=== PATIENT | male | born 1980 | race Caucasian/White ===

== ENCOUNTER 2017-01-11 07:50 | Emergency (ER) | payer OTHER ==
[~2017-01-11] VITALS: Ht 180.3 cm; Wt 129.3 kg
[~2017-01-11 07:50] MED LIST: METF500T PO; TRIA15CR3 TP
--- NOTE | 2017-01-11 08:23 | PHYS DOC ---
Past History Past Medical History: Anxiety, Depression, Hypertension, Other Past Surgical History: No Surgical History Smoking: Cigarettes Alcohol Use: None Drug Use: None Adult General Chief Complaint Chief Complaint: LOSS OF CONSCIOUSNESS HPI HPI Patient is a 36 year old male who presents with complaint of generalized fatigue , weakness, and dehydration. The patient states that he has not been eating or drinking over the past 2-3 days. Patient states that he has been under a trauma in this amount of stress that is related to his family at this time. The patient states that he became very lightheaded while at work earlier today. Patient was brought to the emergency department from work by EMS after patient had a reported loss of consciousness. Patient did not suffer any injuries. Patient states that over the past 2-3 days he has been experiencing chest pain, back pain, and dizziness. Patient has history of diabetes mellitus type 2 and states that he is not taking any medications for this at this time. Patient denies any fever, abdominal pain or nausea currently. The patient does admit to suicidal ideation. The patient states that he has been pursuing outpatient counseling at this time but does not feel like this is helping him. Review of Systems Review of Systems Constitutional: Generalized fatigue [] Eyes: Denies change in visual acuity, redness, or eye pain [] HENT: Denies nasal congestion or sore throat [] Respiratory: Denies cough or shortness of breath [] Cardiovascular: Chest pain [] GI: Denies abdominal pain, nausea, vomiting, bloody stools or diarrhea [] : Denies dysuria or hematuria [] Musculoskeletal: Back pain [] Integument: Denies rash or skin lesions [] Neurologic: Headache, lightheadedness, denies focal weakness or sensory changes [] Allergies Allergies Allergies Coded Allergies Type Severity Reaction Last Updated Verified No Known Allergies Allergy Unknown 11/08/15 Yes Physical Exam Physical Exam Constitutional: Alert, afebrile, appears in mild discomfort. [] HENT: Normocephalic, atraumatic, bilateral external ears normal, oropharynx moist, no oral exudates, nose normal. [] Eyes: PERRLA, EOMI, conjunctiva normal, no discharge. [] Neck: Normal range of motion, no tenderness, supple, no stridor. [] Cardiovascular:Heart rate regular rhythm, no murmur [] Lungs & Thorax: Bilateral breath sounds clear to auscultation [] Abdomen: Bowel sounds normal, soft, no tenderness, no masses, no pulsatile masses. [] Skin: Warm, dry, no erythema, no rash. [] Back: No tenderness, no CVA tenderness. [] Extremities: No tenderness, no cyanosis, no clubbing, ROM intact, no edema. [] Neurologic: Alert and oriented X 3, normal motor function, normal sensory function, no focal deficits noted. [] Current Patient Data Vital Signs Vital Signs Date Time Temp Pulse Resp B/P (MAP) Pulse Ox O2 Delivery O2 Flow Rate FiO2 01/11/17 08:11 98.0 80 20 98 01/11/17 08:06 Room Air Lab Results Laboratory Tests Test 01/11/17 08:26 01/11/17 09:35 White Blood Count 17.8 x10^3/uL Red Blood Count 5.23 x10^6/uL Hemoglobin 15.9 g/dL Hematocrit 47.0 % Mean Corpuscular Volume 90 fL Mean Corpuscular Hemoglobin 30 pg Mean Corpuscular Hemoglobin Concent 34 g/dL Red Cell Distribution Width 13.1 % Platelet Count 280 x10^3/uL Neutrophils (%) (Auto) 78 % Lymphocytes (%) (Auto) 15 % Monocytes (%) (Auto) 5 % Eosinophils (%) (Auto) 2 % Basophils (%) (Auto) 1 % Neutrophils # (Auto) 13.8 x10^3uL Lymphocytes # (Auto) 2.6 x10^3/uL Monocytes # (Auto) 0.8 x10^3/uL Eosinophils # (Auto) 0.3 x10^3/uL Basophils # (Auto) 0.2 x10^3/uL Segmented Neutrophils % 70 % Band Neutrophils % 2 % Lymphocytes % 22 % Monocytes % 2 % Eosinophils % 3 % Basophils % 1 % Platelet Estimate Adequate Giant Platelets Present Sodium Level 142 mmol/L Potassium Level 4.3 mmol/L Chloride Level 107 mmol/L Carbon Dioxide Level 25 mmol/L Anion Gap 10 Blood Urea Nitrogen 15 mg/dL Creatinine 0.9 mg/dL Estimated GFR (Cockcroft-Gault) 95.0 BUN/Creatinine Ratio 17 Glucose Level 172 mg/dL Calcium Level 8.5 mg/dL Magnesium Level 1.9 mg/dL Total Bilirubin 0.2 mg/dL Aspartate Amino Transf (AST/SGOT) 9 U/L Alanine Aminotransferase (ALT/SGPT) 25 U/L Alkaline Phosphatase 70 U/L Creatine Kinase 43 U/L Creatine Kinase MB (Mass) < 0.5 ng/mL Creatine Kinase MB Relative Index 1.2 % Troponin I Quantitative < 0.017 ng/mL Total Protein 6.6 g/dL Albumin 3.4 g/dL Albumin/Globulin Ratio 1.1 Lipase 68 U/L Urine Collection Type Void Urine Color Brynn Urine Clarity Clear Urine pH 5.5 Urine Specific [place] >=1.030 Urine Protein Neg Urine Glucose (UA) Neg mg/dL Urine Ketones (Stick) Trace mg/dL Urine Blood Neg Urine Nitrite Neg Urine Bilirubin Neg Urine Urobilinogen Dipstick 0.2 mg/dL Urine Leukocyte Esterase Neg Urine RBC 0 /HPF Urine WBC Rare /HPF Urine Squamous Epithelial Cells Occ /LPF Urine Bacteria 0 /HPF Urine Mucus Slight /LPF Urine Opiates Screen Neg Urine Methadone Screen Neg Urine Barbiturates Neg Urine Phencyclidine Screen Neg Urine Amphetamine/Methamphetamine Neg Urine Benzodiazepines Screen Neg Urine Cocaine Screen Neg Urine Cannabinoids Screen Neg Urine Ethyl Alcohol Neg Current Medications Medications (Trade) Dose Ordered Sig/Eder Route PRN Reason Start Time Stop Time Status Last Admin Dose Admin Aspirin (Children'S Aspirin) 324 mg 1X ONCE PO 01/11/17 08:30 01/11/17 08:31 DC 01/11/17 08:30 Sodium Chloride 1,000 ml @ 1,000 mls/hr Q1H IV 01/11/17 08:30 01/11/17 09:29 DC 01/11/17 08:30 Prochlorperazine Edisylate (Compazine) 10 mg 1X ONCE IV 01/11/17 08:30 01/11/17 08:31 DC 01/11/17 08:30 Diphenhydramine HCl (Benadryl) 25 mg 1X ONCE IVP 01/11/17 08:30 01/11/17 08:31 DC 01/11/17 08:30 EKG EKG Interpreted by me: Heart rate 68, normal sinus rhythm, normal intervals, early repolarization, no acute ST elevations or depressions [] Radiology/Procedures Radiology/Procedures [address] [address] IMAGING REPORT Signed PATIENT: JAYDA SAMPSON ACCOUNT: [id number] : 1980 LOCATION: ER AGE: 36 SEX: M EXAM STATUS: PRE ER ORD. PHYSICIAN: MARI HUSTON MD REASON: chest pain PROCEDURE: PORTABLE CHEST 1V Chest radiograph 01/11/2017 at 0841 hours Indication: Chest pain Comparison: 11/08/2015 Technique: Upright frontal view of the chest is provided. Findings: Cardiomediastinal silhouette is within normal limits. No pleural effusions, pulmonary vascular congestion or pneumothorax. The lungs are clear. Osseous structures are normal. Impression: No acute cardiopulmonary process. DICTATED AND SIGNED BY: DARLENE MONTEIRO MD DATE: 01/11/17 0851 CC: MARI HUSTON MD; PCP,NO ~ [] Course & Med Decision Making Course & Med Decision Making Pertinent Labs and Imaging studies reviewed. (See chart for details) Patient was started on IV fluids in the emergency department and treated with Compazine and Benadryl for headache. The patient's medical workup showed an elevated white blood cell count and mildly elevated blood glucose count but other tan no significant acute findings. The patient was cleared for psychiatric assessment. The patient was evaluated through telemedicine by Dr. Bejarano of psychiatry. After Dr. Bejarano interviewed the patient, she stated that the patient had a good support system and that the patient would like to pursue outpatient therapy. She feels that this would be appropriate at this time. I do not feel this to be unreasonable. Dr. Bejarano recommended starting the patient on Lexapro 10 mg daily which was initiated in the emergency department. She also recommended prescribing the patient hydroxyzine to use as needed for anxiety. Spoke with the patient regarding plan of care and he was comfortable with this plan and felt safe going home at this time. Advised return emergency department for any worsening symptoms. Patient voiced understanding and in agreement with treatment plan. Dragon Disclaimer Dragon Disclaimer This chart was dictated in whole or in part using Voice Recognition software in a busy, high-work load, and often noisy Emergency Department environment. It may contain unintended and wholly unrecognized errors or omissions. Departure Departure: Impression: Primary Impression: Dehydration Additional Impressions: Depression Anxiety Disposition: 01 HOME, SELF-CARE Condition: IMPROVED Referrals: PCP,NO (PCP) Patient Instructions: Anxiety and Panic Attacks, Dehydration, Adult, Depression , Adult Additional Instructions: You will be started on Lexapro daily for treatment of depression. You will also be started on hydroxyzine to use as needed for anxiety. It is recommended that you follow-up with a primary doctor in the next 1-2 weeks for reevaluation. Return to the emergency department for any worsening symptoms. Scripts Hydroxyzine Hcl (HYDROXYZINE HCL) 25 Mg Tablet 25 MG PO Q6HRS Y for ANXIETY / AGITATION, #60 TAB Prov: MARI HUSTON MD 01/11/17 Escitalopram Oxalate (ESCITALOPRAM OXALATE) 10 Mg Tablet 1 TAB PO DAILY, #30 TAB 0 Refills Prov: MARI HUSTON MD 01/11/17 Problem Qualifiers Additional Impressions: Depression Depression Type: unspecified Qualified Codes: F32.9 - Major depressive disorder, single episode, unspecified MARI HUSTON MD Jan 11, 2017 08:23
[2017-01-11] MEDS ORDERED: ASPIRIN 81 MG TAB.CHEW PO ONE (08:30)
[2017-01-11] MEDS ORDERED: diphenhydrAMINE 50 MG/ML VIAL IVP ONE (08:30)
[2017-01-11] MEDS ORDERED: PROCHLORPERAZINE 10 MG/2 ML VIAL. IV ONE (08:30)
[2017-01-11] MEDS ORDERED: IV NORMAL SALINE 1,000ML 1,000 ML IV SCH (08:30)
[2017-01-11 08:39] LABS: BASO # 0.2 x10^3/uL (0.0-0.2); BASO % 1 % (0-3); EOS # 0.3 x10^3/uL (0.0-0.7); EOS % 2 % (0-3); HEMOGLOBIN 15.9 g/dL (13.0-17.5); LYMPH # 2.6 x10^3/uL (1.0-4.8); LYMPH % 15 % (24-48); MEAN CORPUSCULAR HEMOGLOBIN 30 pg (25-35); MEAN CORPUSCULAR HGB CONC 34 g/dL (31-37); MEAN CORPUSCULAR VOLUME 90 fL (79-100); MONO # 0.8 x10^3/uL (0.0-1.1); MONO % 5 % (0-9); NEUT # 13.8 x10^3uL (1.8-7.7); NEUT % 78 % (31-73); PLATELET COUNT 280 x10^3/uL (140-400); RED BLOOD COUNT 5.23 x10^6/uL (4.30-5.70); RED CELL DISTRIBUTION WIDTH 13.1 % (11.5-14.5); WHITE BLOOD COUNT 17.8 x10^3/uL (4.0-11.0)
--- NOTE | 2017-01-11 08:54 | RAD ---
Chest radiograph 01/11/2017 at 0841 hours Indication: Chest pain Comparison: 11/08/2015 Technique: Upright frontal view of the chest is provided. Findings: Cardiomediastinal silhouette is within normal limits. No pleural effusions, pulmonary vascular congestion or pneumothorax. The lungs are clear. Osseous structures are normal. Impression: No acute cardiopulmonary process.
[2017-01-11 09:00] LABS: ALBUMIN 3.4 g/dL (3.4-5.0); ALBUMIN/GLOBULIN RATIO 1.1 (1.0-1.7); ALK PHOS 70 U/L (46-116); ALT (SGPT) 25 U/L (16-63); ANION GAP 10 (6-14); AST (SGOT) 9 U/L (15-37); BLOOD UREA NITROGEN 15 mg/dL (8-26); BUN/CREATININE RATIO 17 (6-20); CALCIUM 8.5 mg/dL (8.5-10.1); CARBON DIOXIDE 25 mmol/L (21-32); CHLORIDE 107 mmol/L (98-107); CREATINE KINASE 43 U/L (39-308); CREATININE 0.9 mg/dL (0.7-1.3); GLUCOSE 172 mg/dL (70-99); LIPASE 68 U/L (73-393); MAGNESIUM 1.9 mg/dL (1.8-2.4); POTASSIUM 4.3 mmol/L (3.5-5.1); SODIUM 142 mmol/L (136-145); TOTAL BILIRUBIN 0.2 mg/dL (0.2-1.0); TOTAL PROTEIN 6.6 g/dL (6.4-8.2)
[2017-01-11 09:23] LABS: % BANDS 2 % (0-9); % BASOS 1 % (0-3); % EOS 3 % (0-5); % LYMPHS 22 % (24-48); % MONOS 2 % (0-10); % SEGS 70 % (35-66); PLT ESTIMATE ADEQUATE (ADEQUATE)
--- NOTE | 2017-01-11 09:52 | EKG ---
[address] [address] Test Date: 2017-01-11 Test Time: 08:24:55 Pat Name: JAYDA SAMPSON Department: Room: Gender: M [employer]: [employer] : 1980 Requested By: MARI HUSTON Order Number: [id number] Reading MD: Measurements Intervals [place] Rate: 68 P: 29 [place]: 176 QRS: 29 QRSD: 90 T: 27 QT: 382 QTc: 411 Interpretive Statements SINUS RHYTHM R-S TRANSITION ZONE IN V LEADS DISPLACED TO THE RIGHT NON SPECIFIC ST-T ABNORMALITY (ELEVATION) OTHERWISE NORMAL ECG RI6.01 Unconfirmed report No previous ECG available for comparison
[2017-01-11 10:01] LABS: AMPHETAMINE/METHAMPHETAMINE NEG (NEG); BARBITURATES NEG (NEG); BENZODIAZEPINES NEG (NEG); CANNABINOIDS NEG (NEG); COCAINE NEG (NEG); METHADONE NEG (NEG); OPIATES NEG (NEG); PHENCYCLIDINE NEG (NEG)
[2017-01-11 10:02] LABS: BACTERIA,URINE 0 /HPF (0-FEW); BILIRUBIN,URINE NEG (NEG); CLARITY,URINE CLEAR; COLOR,URINE AMBER; GLUCOSE,URINE NEG (NEG); NITRITE,URINE NEG (NEG); RBC,URINE 0 /HPF (0-2); SQUAMOUS EPITHELIAL CELL,UR OCC /LPF; UROBILINOGEN,URINE 0.2 mg/dL (0.2 mg/dL); WBC,URINE RARE /HPF (0-4)
[2017-01-11 10:30] VITALS: BP 151/91
[2017-01-11] MEDS ORDERED: ESCITALOPRAM 10 MG TABLET. PO STA (11:18)
[2017-01-11] MEDS ORDERED: ESCITALOPRAM OX10 MG PO (11:23)
[2017-01-11] MEDS ORDERED: HYDR25TA PO (11:23)
== END 2017-01-11 11:40 | disposition home or self-care (01) ==
LOC: ER 07:50
DX: E86.0 Dehydration (principal); R51 Headache; E11.9 Type 2 diabetes mellitus without complications; I10 Essential (primary) hypertension; F41.9 Anxiety disorder, unspecified; F32.9 Major depressive disorder, single episode, unspecified; F17.210 Nicotine dependence, cigarettes, uncomplicated
CPT/HCPCS: 36415; 71010; 80053; 80305; 80320; 81001; 82553; 83690; 83735; 84443; 84484; 85007; 85027; 93005; 96374; 96375; 99285; J0780; J1200; G0481; J7030

== ENCOUNTER 2017-01-23 08:53 | Emergency (ER) | payer OTHER ==
[~2017-01-23] VITALS: Ht 180.3 cm; Wt 129.3 kg
[~2017-01-23 08:53] MED LIST changes: +ESCITALOPRAM OX10 MG PO; +HYDR25TA PO
--- NOTE | 2017-01-23 09:10 | PHYS DOC ---
Past History Past Medical History: Anxiety, Depression, Hypertension, Other Past Surgical History: No Surgical History Smoking: Cigarettes Alcohol Use: None Drug Use: None Adult General HPI HPI Patient is a 36 year old M who presents with signs and symptoms of allergic reaction. Patient states that after eating rm chicken last night he developed tongue swelling and difficulty swallowing. Patient stated throughout the night he felt like his whole body was itching. Patient took Benadryl last night however woke up this morning with persistent symptoms and went to the [facility] who transferred the patient to the emergency room. Patient states he is able to swallow his own saliva but feels his throat is closing up. Patient denies any wheezing. Patient denies any nausea or vomiting. Patient denies any fevers. Patient is no other complaints. Review of Systems Review of Systems GEN: Denies fevers, chills, sweats HEENT: Swollen throat and tongue CV: Denies chest pain RESP: Denies shortness of air, cough GI: Denies n/v/d NEURO: Denies confusion, dizziness MSK: Denies weakness, joint pain/swelling Current Medications Current Medications Current Medications Medications (Trade) Dose Ordered Sig/Eder Start Time Stop Time Status Last Admin Dose Admin Dexamethasone Sodium Phosphate (Decadron) 10 mg 1X ONCE 01/23/17 09:15 01/23/17 09:16 UNV Diphenhydramine HCl (Benadryl) 50 mg 1X ONCE 01/23/17 09:15 01/23/17 09:16 UNV Epinephrine HCl 0.2 mg 1X ONCE 01/23/17 09:15 01/23/17 09:16 UNV Famotidine (Pepcid) 20 mg 1X ONCE 01/23/17 09:15 01/23/17 09:16 UNV Allergies Allergies Allergies Coded Allergies Type Severity Reaction Last Updated Verified No Known Allergies Allergy Unknown 11/08/15 Yes Physical Exam Physical Exam GEN.: No apparent distress. Alert and oriented. HEENT: Head is normocephalic, atraumatic NECK: Supple. LUNGS: CTAB. HEART: RRR, S1, S2 present. Peripheral pulses intact ABDOMEN: Soft, nontender. Positive bowel sounds. EXTREMITIES: Without any cyanosis. NEUROLOGIC: Normal speech, normal tone PSYCHIATRIC: Normal affect, normal mood. SKIN: No ulcerations EKG EKG [] Radiology/Procedures Radiology/Procedures [] Course & Med Decision Making Course & Med Decision Making Pertinent Labs and Imaging studies reviewed. (See chart for details) Patient was seen and evaluated emergency room, epinephrine, Decadron, Benadryl, Pepcid were ordered 0947: Patient was reevaluated in which he states his swollen tongue and throat are improving and feels much better MDM: After reviewing the chart, CC/HPI/PMH, physical exam, the patient is having potentially a mild allergic reaction however given the sense of tongue swelling and difficult swallowing the patient was given epinephrine and will be sent home with a prescription for EpiPen's. On reevaluation the patient is improving and will be discharged home. Additional verbal discharge instructions were provided to the patient and that if symptoms get worse or any new symptoms arise that are worrisome to the patient he is to return to the emergency room immediately [] Dragon Disclaimer Dragon Disclaimer This chart was dictated in whole or in part using Voice Recognition software in a busy, high-work load, and often noisy Emergency Department environment. It may contain unintended and wholly unrecognized errors or omissions. Departure Departure: Impression: Primary Impression: Allergic reaction to food Disposition: HOME, SELF-CARE Condition: IMPROVED Referrals: PCP,NO (PCP) Patient Instructions: Allergies, Generic Scripts Prednisone (PREDNISONE) 50 Mg Tablet 50 MG PO DAILY for 4 Days, #4 TAB Prov: ANG VALDIVIA DO 01/23/17 Epinephrine (Epinephrine) 0.15 Mg/0.3 Ml Auto.injct 0.3 MG IJ PRN 1X Y for ALLERGIES for 30 Days, #2 SYR Prov: ANG VALDIVIA DO 01/23/17 Problem Qualifiers Primary Impression: Allergic reaction to food Encounter type: initial encounter Qualified Codes: T78.1XXA - Other adverse food reactions, not elsewhere classified, initial encounter ANG VALDIVIA DO Jan 23, 2017 09:10
[2017-01-23] MEDS ORDERED: DEXAMETHASONE SOD PHOS 10 MG/ML VIAL IV ONE (09:30)
[2017-01-23] MEDS ORDERED: EPINEPHrine 1 MG/10 ML DISP.SYRIN IM ONE (09:30)
[2017-01-23] MEDS ORDERED: diphenhydrAMINE 50 MG/ML VIAL IVP ONE (09:30)
[2017-01-23] MEDS ORDERED: FAMOTIDINE 20 MG/2 ML VIAL IVP ONE (09:30)
[2017-01-23] MEDS ORDERED: PRED50TA PO (09:53)
[2017-01-23] MEDS ORDERED: EPIN0.1517 IJ (09:53)
[2017-01-23 10:35] VITALS: BP 151/78
== END 2017-01-23 10:37 | disposition home or self-care (01) ==
LOC: ER 08:53
DX: T78.1XXA Other adverse food reactions, not elsewhere classified, initial encounter (principal); I10 Essential (primary) hypertension; F17.210 Nicotine dependence, cigarettes, uncomplicated; X58.XXXA Exposure to other specified factors, initial encounter
CPT/HCPCS: 82947; 96372; 96374; 96375; 99284; J0171; J1100; J1200; S0028

== ENCOUNTER 2017-01-30 01:00 | Emergency (ER) | payer OTHER ==
[~2017-01-30 01:00] MED LIST changes: +EPIN0.1517 IJ; +PRED50TA PO
[2017-01-30 01:31] LABS: BASO # 0.2 x10^3/uL (0.0-0.2); BASO % 1 % (0-3); EOS # 0.3 x10^3/uL (0.0-0.7); EOS % 2 % (0-3); HEMATOCRIT 48.3 % (39.0-53.0); HEMOGLOBIN 16.9 g/dL (13.0-17.5); LYMPH # 5.5 x10^3/uL (1.0-4.8); LYMPH % 30 % (24-48); MEAN CORPUSCULAR HEMOGLOBIN 31 pg (25-35); MEAN CORPUSCULAR HGB CONC 35 g/dL (31-37); MEAN CORPUSCULAR VOLUME 88 fL (79-100); MONO # 1.1 x10^3/uL (0.0-1.1); MONO % 6 % (0-9); NEUT % 61 % (31-73); PLATELET COUNT 304 x10^3/uL (140-400); RED BLOOD COUNT 5.48 x10^6/uL (4.30-5.70)
[2017-01-30 01:36] LABS: CREATININE 0.9 mg/dL (0.7-1.3)
[2017-01-30 01:38] LABS: POTASSIUM 4.1 mmol/L (3.5-5.1)
[2017-01-30] MEDS ORDERED: diphenhydrAMINE 50 MG/ML VIAL IVP ONE (01:45)
[2017-01-30] MEDS ORDERED: MORPHINE SULFATE 2 MG/ML DISP.SYRIN. IM ONE (01:45)
--- NOTE | 2017-01-30 01:55 | PHYS DOC ---
Past History Past Medical History: Diabetes Past Surgical History: No Surgical History Smoking: Cigarettes Alcohol Use: Occasionally Drug Use: None Adult General Chief Complaint Chief Complaint: CHEST PAIN [facility] HPI Patient is a 36-year-old male who presents with complaints of chest pain that has been intermittent for over a week. He states the patient is in the center of the chest, it does not radiate, it feels like heartburn, he feels worse when he lays down and improves when he sits up, it gets better when he drinks liquids. There is no associated shortness of breath or diaphoresis. Patient has history of Diabetes, Hypertension, Anxiety, High Cholesterol. Patient Is a Smoker. Patient Denies Any Sick Contacts, No Trauma, No Rashes, No Fevers No New Swelling or Pain in His Extremities. Review of Systems Review of Systems Constitutional: Denies fever or chills [] Eyes: Denies change in visual acuity, redness, or eye pain [] HENT: Denies nasal congestion or sore throat [] Respiratory: Denies cough or shortness of breath [] Cardiovascular: No additional information not addressed in HPI [] GI: Denies abdominal pain, nausea, vomiting, bloody stools or diarrhea [] : Denies dysuria or hematuria [] Musculoskeletal: Denies back pain or joint pain [] Integument: Denies rash or skin lesions [] Neurologic: Denies headache, focal weakness or sensory changes [] Current Medications Current Medications Current Medications Medications (Trade) Dose Ordered Sig/Eder Start Time Stop Time Status Last Admin Dose Admin Diphenhydramine HCl (Benadryl) 50 mg 1X ONCE 01/30/17 01:45 01/30/17 01:46 DC 01/30/17 01:35 50 MG Morphine Sulfate (Morphine 2mg Syringe) 2 mg 1X ONCE 01/30/17 01:45 01/30/17 01:46 DC 01/30/17 01:35 2 MG Allergies Allergies Allergies Coded Allergies Type Severity Reaction Last Updated Verified No Known Allergies Allergy Unknown 11/08/15 Yes Physical Exam Physical Exam Constitutional: Well developed, well nourished, mild distress, non-toxic appearance. [] HENT: Normocephalic, atraumatic, oropharynx moist, no oral exudates, nose normal. [] Eyes: EOMI, conjunctiva normal, no discharge. [] Neck: Normal range of motion, no tenderness, supple, no stridor. No JVD Cardiovascular:Heart rate regular rhythm, no murmur, normal perfusion, no vascular insufficiency, equal pulses Lungs & Thorax: Bilateral breath sounds clear to auscultation, no tachypnea Abdomen: Bowel sounds normal, soft, no tenderness, no masses, no pulsatile masses. [] Skin: Warm, dry, no erythema, no rash. [] Back: No tenderness, no CVA tenderness. [] Extremities: No tenderness, no cyanosis, no clubbing, ROM intact, no edema. No signs of DVT Neurologic: Alert and oriented X 3, normal motor function, ambulating in the ED with normal gait and without assistance no focal deficits noted. [] Psychologic: Affect normal, judgement normal, mood normal. [] Current Patient Data Vital Signs Vital Signs Date Time Temp Pulse Resp B/P (MAP) Pulse Ox O2 Delivery O2 Flow Rate FiO2 01/30/17 01:35 20 99 Room Air Lab Results Laboratory Tests Test 01/30/17 01:18 White Blood Count 18.0 x10^3/uL (4.0-11.0) H Red Blood Count 5.48 x10^6/uL (4.30-5.70) Hemoglobin 16.9 g/dL (13.0-17.5) Hematocrit 48.3 % (39.0-53.0) Mean Corpuscular Volume 88 fL (79-100) Mean Corpuscular Hemoglobin 31 pg (25-35) Mean Corpuscular Hemoglobin Concent 35 g/dL (31-37) Red Cell Distribution Width 13.0 % (11.5-14.5) Platelet Count 304 x10^3/uL (140-400) Neutrophils (%) (Auto) 61 % (31-73) Lymphocytes (%) (Auto) 30 % (24-48) Monocytes (%) (Auto) 6 % (0-9) Eosinophils (%) (Auto) 2 % (0-3) Basophils (%) (Auto) 1 % (0-3) Neutrophils # (Auto) 11.0 x10^3uL (1.8-7.7) H Lymphocytes # (Auto) 5.5 x10^3/uL (1.0-4.8) H Monocytes # (Auto) 1.1 x10^3/uL (0.0-1.1) Eosinophils # (Auto) 0.3 x10^3/uL (0.0-0.7) Basophils # (Auto) 0.2 x10^3/uL (0.0-0.2) Platelet Estimate Pending Sodium Level 140 mmol/L (136-145) Potassium Level 4.1 mmol/L (3.5-5.1) Chloride Level 102 mmol/L (98-107) Carbon Dioxide Level 29 mmol/L (21-32) Anion Gap 9 (6-14) Blood Urea Nitrogen 18 mg/dL (8-26) Creatinine 0.9 mg/dL (0.7-1.3) Estimated GFR (Cockcroft-Gault) 95.0 Glucose Level 121 mg/dL (70-99) H Calcium Level 9.0 mg/dL (8.5-10.1) Troponin I Quantitative < 0.017 ng/mL (0-0.055) EKG EKG 94, sinus rhythm, no STEMI, EP interpretation at 0108 [] 86, sinus rhythm, no STEMI, EP interpretation at 0403 Radiology/Procedures Radiology/Procedures Preliminary read: No acute disease [] Course & Med Decision Making Course & Med Decision Making Pertinent Labs and Imaging studies reviewed. (See chart for details) HEART SCORE: Low risk 0.91.7% 30-day MACE Repeat troponin at 3 hours and if negative, discharge home with outpatient follow-up. 0422 patient resting comfortably in no distress. Patient states he feels improved and back to baseline, wishes to go home now. Plan of follow-up discussed with the patient progress to follow up as directed. Dragon Disclaimer Dragon Disclaimer This chart was dictated in whole or in part using Voice Recognition software in a busy, high-work load, and often noisy Emergency Department environment. It may contain unintended and wholly unrecognized errors or omissions. Departure Departure: Impression: Primary Impression: Chest pain of unknown etiology Disposition: 01 HOME, SELF-CARE Condition: IMPROVED Referrals: PCPKEENA (PCP) Patient Instructions: Chest Pain (Nonspecific) Additional Instructions: Please follow-up with your PCP in one to 2 days and discuss this ED visit and the possibility for additional outpatient workup. If your symptoms continue discussed with your PCP possible referral to a specialist. If your symptoms symptoms worsen or new concerning symptoms develop return to the ED immediately Candie JENKINS MD Jan 30, 2017 01:55
[2017-01-30] MEDS ORDERED: LIDO:MAALOX 1:1 20 ML SINGLE DOSE PO ONE (02:00)
[2017-01-30 02:10] LABS: % BANDS 1 % (0-9); % EOS 2 % (0-5); % LYMPHS 37 % (24-48); % MONOS 7 % (0-10); % SEGS 53 % (35-66); PLT ESTIMATE ADEQUATE (ADEQUATE)
[2017-01-30 04:30] VITALS: BP 141/79
--- NOTE | 2017-01-30 06:31 | EKG ---
[address] [address] Test Date: 2017-01-30 Test Time: 04:00:34 Pat Name: JAYDA SAMPSON Department: Room: Gender: M [employer]: TRAV : 1980 Requested By: Candie JENKINS Order Number: [id number] Reading MD: Tutu Solorzano Measurements Intervals [place] Rate: 86 P: 47 [place]: 162 QRS: 32 QRSD: 90 T: 25 QT: 360 QTc: 434 Interpretive Statements SINUS RHYTHM Electronically Signed On 02-01-2017 7:54:56 CDT by Tutu Solorzano
--- NOTE | 2017-01-30 06:32 | EKG ---
[address] [address] Test Date: 2017-01-30 Test Time: 01:07:02 Pat Name: JAYDA SAMPSON Department: Room: Gender: M Manager Housekeeping: TRAV : 1980 Requested By: Candie JENKINS Order Number: [id number] Reading MD: Tutu Solorzano Measurements Intervals [place] Rate: 94 P: 39 ND: 154 QRS: 38 QRSD: 88 T: 28 QT: 334 QTc: 423 Interpretive Statements SINUS RHYTHM Electronically Signed On 02-01-2017 7:54:40 CDT by Tutu Solorzano
--- NOTE | 2017-01-30 07:15 | RAD ---
Chest, 2 views, 01/30/2017: History: Midsternal pain The heart size and pulmonary vascularity are normal. No pulmonary infiltrates are seen. There is no evidence of pleural fluid. Mild spurring is present in the spine. IMPRESSION: No acute cardiopulmonary abnormality is detected.
== END 2017-01-30 04:30 | disposition home or self-care (01) ==
LOC: ER 01:00
DX: R07.89 Other chest pain (principal); E11.9 Type 2 diabetes mellitus without complications; E78.00 Pure hypercholesterolemia, unspecified; F41.9 Anxiety disorder, unspecified; I10 Essential (primary) hypertension; F17.210 Nicotine dependence, cigarettes, uncomplicated
CPT/HCPCS: 36415; 71020; 80048; 84484; 85007; 85027; 85379; 93005; 96372; 96374; 99285; J1200; J2270

== ENCOUNTER 2017-02-20 08:19 | Emergency (ER) | payer OTHER ==
[~2017-02-20] VITALS: Ht 180.3 cm; Wt 124.7 kg
[2017-02-20] MEDS ORDERED: METF500T4 PO (09:01)
[2017-02-20] MEDS ORDERED: LISI-334 PO (09:01)
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
[2017-02-20] MEDS ORDERED: NEOMYCIN/BACITRAC/POLY TOPICAL OINTMENT 28GM TUBE. TP ONE (09:15)
[2017-02-20] MEDS ORDERED: metFORMIN 500 MG TABLET PO ONE (09:15)
[2017-02-20] MEDS ORDERED: LORazepam 1 MG TABLET PO ONE (09:15)
[2017-02-20 09:27] VITALS: BP 158/102
[2017-02-20] MEDS ORDERED: LISINOPRIL 20 MG TABLET PO ONE (09:30)
== END 2017-02-20 09:30 | disposition home or self-care (01) ==
LOC: ER 08:19
DX: T22.112A Burn of first degree of left forearm, initial encounter (principal); E11.65 Type 2 diabetes mellitus with hyperglycemia; F41.9 Anxiety disorder, unspecified; I10 Essential (primary) hypertension; F32.9 Major depressive disorder, single episode, unspecified; K21.9 Gastro-esophageal reflux disease without esophagitis; F17.210 Nicotine dependence, cigarettes, uncomplicated; Y93.89 Activity, other specified; Y99.8 Other external cause status; Y92.89 Other specified places as the place of occurrence of the external cause
CPT/HCPCS: 16020; 82947; 99285-25

== ENCOUNTER → 2017-04-16 | Outpatient (CLI) | payer OTHER ==
[~2017-04-16] MED LIST changes: +LISI-334 PO; +METF500T4 PO
--- NOTE | 2017-04-16 09:58 | RAD ---
Indication fall. Pain. AP oblique and lateral views of the right wrist were obtained. No bony abnormality is seen.
== END | disposition home or self-care (01) ==
LOC: DXRADRC 09:42
PROVIDERS: ATTEND Physician Assistant Medical
DX: M25.531 Pain in right wrist (principal); W19.XXXA Unspecified fall, initial encounter; Y93.89 Activity, other specified; Y92.89 Other specified places as the place of occurrence of the external cause; Y99.8 Other external cause status
CPT/HCPCS: 73110